=== PATIENT | female | born 1995 | race Caucasian/White ===

== ENCOUNTER 2020-01-24 07:23 | Inpatient (IN) | payer MEDICAID ==
[~2020-01-24] VITALS: Ht 170.2 cm; Wt 63.0 kg
[2020-01-24] MEDS ORDERED: LACTATED RINGERS 1,000 ML IV SCH (07:51)
[2020-01-24] MEDS ORDERED: PROMETHAZINE 25 MG/ML VIAL IVP PRN (07:55)
[2020-01-24] MEDS ORDERED: CARBOPROST 250 MCG/ML AMP IM PRN (07:55)
[2020-01-24] MEDS ORDERED: METHYLERGONOVINE 0.2 MG/ML AMP IM PRN ×2 (07:55→12:20)
[2020-01-24] MEDS ORDERED: OXYTOCIN 20 UNITS in LACTATED RINGERS 1,000 ML IV SCH (08:05)
[2020-01-24] MEDS: fentaNYL 0.05 MG/ML VIAL IVP PRN ×2 (08:25→10:41)
[2020-01-24 08:57] LABS: BASOPHILS # (AUTO) 0.1 K/uL (0.00-0.22); BASOPHILS % (AUTO) 0.7 % (0.0-2.0); EOSINOPHILS % (AUTO) 0.6 % (0.0-4.0); HEMATOCRIT 33.6 % (36-48); HEMOGLOBIN 10.8 g/dL (12.0-16.0); LYMPHOCYTES # (AUTO) 2.2 K/uL (2.5-16.5); LYMPHOCYTES % (AUTO) 29.1 % (20.5-51.1); MEAN CORPUSCULAR HEMOGLOBIN 26 pg (27-31); MEAN CORPUSCULAR HGB CONC 32 g/dL (33-37); MEAN CORPUSCULAR VOLUME 79.7 fL (80-94); MONOCYTES # (AUTO) 0.4 K/uL (0.8-1.0); MONOCYTES % (AUTO) 5.2 % (1.7-9.3); NEUTROPHILS # (AUTO) 4.9 K/uL (1.8-7.7); NEUTROPHILS % (AUTO) 64.4 % (42.2-75.2); PLATELET COUNT (AUTO) 170 K/uL (140-450); RED BLOOD CELL COUNT(AUTO) 4.21 MIL/uL (4.20-5.40); RED CELL DISTRIBUTION WIDTH 15.1 % (11.6-13.7); WHITE BLOOD COUNT (AUTO) 7.5 K/uL (4.8-10.8)
--- NOTE | 2020-01-24 09:10 | NUR ---
PATIENT HAS BEEN SCREENED AND CATEGORIZED LOW NUTRITION RISK. PATIENT WILL BE SEEN WITHIN 7 DAYS OF ADMISSION. 01/30/[address]
[2020-01-24 09:12] LABS: APPEARANCE,URINE SL CLOUDY (CLEAR); BILIRUBIN,URINE 1+ (NEGATIVE); BLOOD, URINE 3+ (NEGATIVE); COLOR,URINE RED (YELLOW); LEUKOCYTE ESTERASE ,URINE 1+ (NEGATIVE); NITRITE, URINE POSITIVE (NEGATIVE); UGLUCOSE NEGATIVE (NEGATIVE)
[2020-01-24] MEDS ORDERED: AMPICILLIN 2,000 MG in NACL 0.9% MINI-BAG PLUS 100 ML IV SCH (09:15)
[2020-01-24 09:17] LABS: ANION GAP 14.1 (8-16); CARBON DIOXIDE 23.7 mmol/L (21-32); CREATININE 0.7 mg/dL (0.6-1.3); POTASSIUM 3.8 mmol/L (3.5-5.1); TOTAL BILIRUBIN 0.6 mg/dL (0.0-1.0)
[2020-01-24 09:22] LABS: BARBITURATE, URINE NEGATIVE ng/ml (NEG <=200); BENZODIAZEPINE, URINE NEGATIVE ng/mL (NEG <=200); CANNABINOID, URINE NEGATIVE ng/mL (NEG <=50); COCAINE, URINE NEGATIVE ng/mL (NEG <=300); OPIATE, URINE NEGATIVE ng/mL (NEG <=2000); PHENCYCLIDINE SCREEN,URINE NEGATIVE ng/mL (NEG <=25)
[2020-01-24 09:26] LABS: RBC,URINE TOO NUMEROUS TO COUN /HPF (0-5)
[2020-01-24 09:54] VITALS: BP 127/73
[2020-01-24] MEDS ORDERED: OXYTOCIN 20 UNITS/LR PREMIX 1,000 ML IV ONE (10:09)
[2020-01-24] MEDS ORDERED: AMPICILLIN 1,000 MG in NACL 0.9% MINI-BAG PLUS 50 ML IV SCH (12:00)
[2020-01-24] MEDS ORDERED: IBUPROFEN 800 MG TAB PO PRN (12:20)
[2020-01-24] MEDS ORDERED: OXYTOCIN 10 UNITS/ML VIAL IM PRN (12:20)
[2020-01-24] MEDS ORDERED: METHYLERGONOVINE 0.2 MG TAB PO PRN (12:20)
[2020-01-24] MEDS ORDERED: MEASLES, MUMPS, AND RUBELLA 1 VIAL SQVAC PRN (12:20)
[2020-01-24] MEDS ORDERED: BENZOCAINE/MENTHOL 20%-0.5% 60 GM CAN TP PRN (12:20)
[2020-01-25 06:18] LABS: HEMATOCRIT 26.6 % (36-48); HEMOGLOBIN 8.6 g/dL (12.0-16.0)
[2020-01-25] MEDS ORDERED: ROPIVACAINE 0.2%/NS PREMIX 200 ML EPI ONE (11:05)
== END 2020-01-25 15:05 | disposition home or self-care (01) | DRG 560 ==
LOC: MLD 07:23 → MFCC 14:19
PROVIDERS: ADMIT Obstetrics & Gynecology; ATTEND Obstetrics & Gynecology
PROC: 3E0234Z Introduction of Serum, Toxoid and Vaccine into Muscle, Percutaneous Approach (ICD-10-PCS; principal; 2020-01-24)
PROC: 10E0XZZ Delivery of Products of Conception, External Approach (ICD-10-PCS; 2020-01-24)
PROC: 10907ZC Drainage of Amniotic Fluid, Therapeutic from Products of Conception, Via Natural or Artificial Opening (ICD-10-PCS; 2020-01-24)
DX: O70.0 First degree perineal laceration during delivery (principal); O45.93 Premature separation of placenta, unspecified, third trimester; O26.893 Other specified pregnancy related conditions, third trimester; Z37.0 Single live birth; Z3A.38 38 weeks gestation of pregnancy; Z67.41 Type O blood, Rh negative
CPT/HCPCS: 36415; 59409; 76805; 80053; 80305; 81001; 85018; 85025; 86592; 86762; 86850; 86886; 86900; 86901; 87086; 87340; 87653-90; J2550; J2590; J2790; J2795; J3010; J7120; Q0092